=== PATIENT | male | born 1950 | race Caucasian/White ===

== ENCOUNTER 2020-11-04 18:16 | Emergency (ER) | payer MEDICARE, SELFPAY ==
--- NOTE | ~2020-11-04 | XR_ITS ---
EXAMINATION: XR chest 1V portable 11/04/2020 19:27 INDICATION: Transient alteration of awareness PROCEDURE: AP view of the chest COMPARISON: Comparison to multiple prior studies sequentially, with oldest reviewed study dated 10/14. FINDINGS: The lungs are clear. The cardiomediastinal silhouette is within normal limits. There are no pleural effusions. There is no pneumothorax suspected. There is atherosclerosis. IMPRESSION: 1: NO ACUTE CARDIOPULMONARY DISEASE. Reviewed, dictated and finalized at location A. NG FRAME OPERATOR
--- NOTE | ~2020-11-04 | CT_ITS ---
EXAMINATION: CT brain wo con DATE: 11/04/2020 19:24 INDICATION: Increased tremors. Confusion. Altered mental status. TECHNIQUE: Computed tomography (CT) of the head was performed without intravenous contrast. The dose- length product was 605.33 mGy-cm. Automated exposure control and iterative reconstruction technique w ere employed. COMPARISON: None FINDINGS: Mild generalized atrophy. There are scattered mild periventricular and subcortical white ma tter changes, most likely related to small vessel ischemic disease (microangiopathy). No acute intrac ranial hemorrhage, infarction, mass or mass effect. No ventriculomegaly or midline shift. Paranasal s inuses and mastoids are pneumatized. No depressed skull fractures. IMPRESSION: 1. No acute intracranial abnormality. 2: Chronic age-related findings. Reviewed, dictated and finalized at location A. ER HELPER
[2020-11-04 18:16] VITALS: BP 162/78; PULSE 56; RESP 18; TEMP 36.6; O2SAT 100
--- NOTE | 2020-11-04 18:34 | ECG_ITS ---
Measurements Intervals [place] Rate: 58 P: 84 AL: 194 QRS: 33 QRSD: 96 T: 42 QT: 452 QTc: 447 Interpretive Statements SINUS BRADYCARDIA INCOMPLETE RIGHT BUNDLE BRANCH BLOCK CANNOT RULE OUT SEPTAL INFARCT, AGE INDETERMINATE BORDERLINE ST ABNORMALITY- INFERIOR LEADS BASELINE ARTIFACT- I, II, III, AVR, AVL, AVF, V1, V3-V6 ABNORMAL ECG Electronically Signed On 11-05-2020 11:09:03 INFUSION THERAPY NURSE by James Carreon D.O.
[2020-11-04 18:52] LABS: Basophils Percent Auto 0.5 % (0.2-1.2); Eosinophils Absolute Auto 0.2 K/mm3 (0-0.3); Eosinophils Percent Auto 3.2 % (0-4.4); Hemoglobin 14.8 g/dL (14.0-18.0); Immature Granulocyte Absolute 0.01 K/mm3 (0.00-0.031); Immature Granulocyte Percent A 0.2 % (0-0.5); Lymphocytes Absolute Auto 1.32 K/mm3 (0.9-3.2); Lymphocytes Percent Auto 21.2 % (18.3-44.2); Mean Corpuscular HGB Conc 34.4 g/dl (32-36); Mean Corpuscular Hemoglobin 30.2 pg (26-34); Mean Corpuscular Volume 87.8 fl (80-100); Mean Platelet Volume 9.1 fl (7.4-10.4); Monocytes Absolute Auto 0.7 K/mm3 (0.1-0.6); Monocytes Percent Auto 10.4 % (2.6-8.5); Neutrophils Percent Auto 64.5 % (45.5-73.1); Platelet Count Result 213 k/mm3 (150-375); Red Cell Distribution Width 13.9 % (11.5-14.5); White Blood Count 6.2 K/mm3 (4.5-10.0)
[2020-11-04 19:05] LABS: Alanine Aminotransferase 14 U/L (4-50); Albumin Level 4.2 g/dL (3.5-5.1); Alkaline Phosphatase 110 U/L (38-126); Anion Gap 7 mmol/L (8-16); Aspartate Amino Transferase 27 U/L (17-59); Bilirubin,Total 0.7 mg/dL (0.2-1.3); Blood Urea Nitrogen 20 mg/dL (9-20); Calcium 9.4 mg/dL (8.4-10.2); Carbon Dioxide 29 mmol/L (22-30); Chloride 103 mmol/L (98-107); Estimated CRCL calculation 46 ml/min; Estimated Glomerular Filt Rate 60; Glucose 90 mg/dL (75-110); Potassium 3.8 mmol/L (3.4-5.0); Sodium 139 mmol/L (137-145)
--- NOTE | 2020-11-04 19:07 | ED.GENADULT ---
HPI - General Adult General Chief complaint: Altered Mental Status Stated complaint: altered Time Seen by Provider: 11/04/20 19:01 Source: RN notes reviewed History of Present Illness HPI narrative: Patient presents to emergency department from home with for altered mental status. Per the patient's patient has a history of Alzheimer's. He had been upstairs and came downstairs and per the had been not acting quite like himself he had said he had not felt good and had some increased tremors at that time to get the patient to sit down and drink some punch and brought him to the emergency department for further evaluation at this point time the states the patient is back to normal. patient currently denies any complaints. Per the patient's he is a diabetic takes Metformin but they did not check his blood sugar the patient has had minimal p.o. intake today denies any recent illness denies any fevers or chills chest pain shortness of breath abdominal pain nausea vomiting diarrhea or any other symptoms Related Data Home Medications Medication Instructions Recorded Confirmed aspirin 81 mg tablet,delayed 81 mg PO DAILY 11/18/19 08/30/20 release cyanocobalamin (vitamin B-12) 1,000 mcg PO DAILY 04/09/20 08/30/20 1,000 mcg capsule donepezil mg 11/04/20 Allergies Allergy/AdvReac Type Severity Reaction Status Date / Time No Known Allergies Allergy Verified 11/04/20 18:28 Review of Systems Review of Systems: Narrative: Gen.: Denies fevers or chills Eyes: Denies eye pain or visual change ENT: Denies congestion Respiratory: Denies shortness of breath or cough CV: Denies chest pain or palpitations GI: Denies abdominal pain nausea, emesis or diarrhea Musculoskeletal: Denies back pain or muscle pain Neuro: See HPI Skin: Denies rash Except as documented, all other systems reviewed and negative [facility] Past Medical History Medical History (Updated 11/04/20 @ 21:26 by Gautam Maloney DO) Alzheimer's disease, unspecified Type 2 diabetes mellitus without complication, without long-term current use of insulin Surgical History Surgical History H/O foot surgery left foot H/O hand surgery finger surgery History of knee replacement right knee Family History Family History Other Diabetes mellitus Family history of Alzheimer's disease Family history of malignant neoplasm Social History Social History Smoking status: Never smoker Alcohol intake: never Exam Narrative: Exam Narrative: APPEARANCE: No acute distress, nontoxic, resting in bed EYES: EOMI HEENT: Normocephalic, atraumatic, OMM RESPIRATORY: No respiratory distress Clear to auscultation bilaterally with no rhonchi wheezing or rales. CARDIOVASCULAR: Regular rate and rhythm without murmurs rubs or gallops. ABDOMINAL: Soft, nontender, nondistended, no rebound or guarding MUSCULOSKELETAl: Moves all extremities. No clubbing, cyanosis or edema. NEURO: Awake and alert x 1. Following commands, speech normal, no focal deficits muscle strength 5 out of 5 bilateral upper and lower extremities SKIN:: Warm, dry. No rashes lesions or abrasions PSYCHIATRIC: Normal affect/mood, Course Course Emergency Course: Patient is remained awake and alert throughout his stay in the emergency department able to Ambulate with no difficulty per the the patient is remained at his baseline throughout stay Called and discussed with Dr. Donaldson per Dr. Peralta presentation work-up agrees with plan for discharge at this time. Plan to hold metformin Discussed with patient results of workup and diagnosis. Discussed need for follow-up with primary care, proper use of medication, and reasons to return to the emergency department. Patient understands and agrees to current treatment plan Vital
[2020-11-04 20:13] LABS: Add Urine Microscopic? YES; Appearance Urine Clear (Clear); Bilirubin Urine Negative (Negative); Blood Urine 1+ (Negative); Color Urine Yellow (Yellow); Glucose Urine UA Negative (Negative); Ketones Urine 1+ mg/dL (Negative); Leukocyte Esterase Ur Negative LEU/UL (Negative); Mucus Urine Rare /lpf; Nitrate Urine Negative (Negative); Protein Urine 1+ mg/dL (Negative); Specific Grav Ur 1.018 (1.001-1.035)
[2020-11-04 20:13] LABS: Glucose Point of Care 73 (65-105)
[2020-11-04 21:09] VITALS: BP 144/82; PULSE 62; RESP 18; O2SAT 98
[2020-11-04 21:09] LABS: Glucose Point of Care 77 (65-105)
== END 2020-11-04 21:56 | disposition home or self-care (01) ==
PROVIDERS: Emergency Medicine; Emergency Provider Emergency Medicine; PCP Family Medicine
DX: R41.82 Altered mental status, unspecified (principal); G30.9 Alzheimer's disease, unspecified; F02.80 Dementia in other diseases classified elsewhere, unspecified severity, without behavioral disturbance, psychotic disturbance, mood disturbance, and anxiety; Z79.82 Long term (current) use of aspirin; E11.9 Type 2 diabetes mellitus without complications; Z96.651 Presence of right artificial knee joint; R00.1 Bradycardia, unspecified; I45.10 Unspecified right bundle-branch block; R94.31 Abnormal electrocardiogram [ECG] [EKG]
CPT/HCPCS: 36415; 51701; 70450; 71045; 80053; 81001; 82948; 85025; 93005; 99284

== ENCOUNTER 2021-07-26 09:27 | Emergency (ER) | payer MEDICARE, SELFPAY ==
--- NOTE | ~2021-07-26 | XR_ITS ---
EXAMINATION: XR chest 1V portable EXAM DATE: 07/26/2021 10:21 INDICATION: Altered mental status. TECHNIQUE: Portable AP frontal chest x-ray was obtained. Comparison is made to prior examination from 11/04/2020. FINDINGS: Right midlung zone nodule, appears unchanged compared to previous studies. Could be a granu bertrand or patient's nipple. The lungs are otherwise clear. There are no pleural effusions. The cardio mediastinal silhouette is within normal limits. There is no pneumothorax suspected. Patient has dif fuse idiopathic skeletal hyperostosis (DISH). IMPRESSION: No acute cardiopulmonary findings. Reviewed, dictated and finalized at location B.
[2021-07-26 09:32] VITALS: BP 101/63; PULSE 66; RESP 22; TEMP 36.6; O2SAT 98
[2021-07-26] MEDS: LORazepam INJ (*CRX) 2 MG/ML VIAL 0.5 MG IV PUSH (09:59)
[2021-07-26 10:19] LABS: Basophils Percent Auto 0.6 % (0.2-1.2); Eosinophils Absolute Auto 0.2 K/mm3 (0-0.3); Eosinophils Percent Auto 4.1 % (0-4.4); Hematocrit 42.7 % (42.0-52.0); Immature Granulocyte Absolute 0.02 K/mm3 (0.00-0.031); Immature Granulocyte Percent A 0.4 % (0-0.5); Lymphocytes Absolute Auto 0.84 K/mm3 (0.9-3.2); Lymphocytes Percent Auto 15.6 % (18.3-44.2); Mean Corpuscular HGB Conc 32.8 g/dl (32-36); Mean Corpuscular Hemoglobin 29.1 pg (26-34); Mean Corpuscular Volume 88.8 fl (80-100); Monocytes Absolute Auto 0.5 K/mm3 (0.1-0.6); Monocytes Percent Auto 9.1 % (2.6-8.5); Neutrophils Absolute Auto 3.8 K/mm3 (1.3-6.7); Neutrophils Percent Auto 70.2 % (45.5-73.1); Platelet Count Result 233 k/mm3 (150-375); Red Blood Count 4.81 M/mm3 (4.6-6.20); Red Cell Distribution Width 14.6 % (11.5-14.5); White Blood Count 5.4 K/mm3 (4.5-10.0)
[2021-07-26 10:28] LABS: Add Urine Microscopic? YES; Appearance Urine Clear (Clear); Bacteria Urine Trace /hpf; Bilirubin Urine Negative (Negative); Blood Urine Negative (Negative); Color Urine Yellow (Yellow); Glucose Urine UA Negative (Negative); Ketones Urine Trace mg/dL (Negative); Leukocyte Esterase Ur Negative LEU/UL (Negative); Mucus Urine Rare /lpf; Nitrate Urine Negative (Negative); Protein Urine 1+ mg/dL (Negative); WBC Urine 0-3 /hpf
[2021-07-26 10:35] LABS: Ethanol < 10 mg/dL (<10)
[2021-07-26 10:37] LABS: Alanine Aminotransferase 62 U/L (4-50); Albumin Level 4.3 g/dL (3.5-5.1); Alkaline Phosphatase 82 U/L (38-126); Anion Gap 13 mmol/L (8-16); Aspartate Amino Transferase 81 U/L (17-59); Bilirubin,Total 0.6 mg/dL (0.2-1.3); Blood Urea Nitrogen 41 mg/dL (9-20); Calcium 9.7 mg/dL (8.4-10.2); Carbon Dioxide 27 mmol/L (22-30); Chloride 107 mmol/L (98-107); Estimated CRCL calculation 56 ml/min; Estimated Glomerular Filt Rate > 60; Glucose 176 mg/dL (65-110); Potassium 3.4 mmol/L (3.4-5.0); Sodium 147 mmol/L (137-145)
[2021-07-26 10:44] LABS: Amphetamine Screen Urine Negative (Negative); Barbiturate Screen Urine Negative (Negative); Benzodiazepines Screen Urine Negative (Negative); Cannabinoid Screen Urine Positive (Negative); Cocaine Screen Urine Negative (Negative); Methadone Screen Urine Negative (Negative); Opiate Screen Urine Negative (Negative); Phencyclidine Screen Urine Negative (Negative)
[2021-07-26] MEDS: SODIUM CHLORIDE 0.9% IV 1,000 ML 999 ML IV CONT (10:50)
--- NOTE | 2021-07-26 10:57 | PCCCNOTE ---
Spoke with Amie at [facility]. Currently there are no beds in the Memory Unit but she is willing to come to the ED and speak with pt's about their services and place patient on a waiting list. Left message for Enedelia at [facility].
[2021-07-26 10:59] LABS: Specific Grav Ur 1.034 (1.001-1.035)
--- NOTE | 2021-07-26 11:16 | PCCCNOTE ---
Message left for Khoi Gan. No answer at [facility] or [facility] - multiple attempts
--- NOTE | 2021-07-26 11:23 | PCCCNOTE ---
Message left for Sarah Farias
[2021-07-26 11:51] VITALS: BP 124/63; PULSE 62; RESP 18; O2SAT 99
--- NOTE | 2021-07-26 11:57 | ED.AMS ---
HPI - Altered Mental Status General Chief Complaint: Altered Mental Status Stated Complaint: Progression of Alzheimers Time Seen by Provider: 07/26/21 09:37 History of Present Illness HPI narrative: Patient is a 71-year-old male with history of Alzheimer's disease who presents ER with progression of his disease. Per over the last month he is becoming more agitated with minor stimuli where he acts out. He has lost the ability to know how to use the toilet and will urinate on the floor. He also is not capable of feeding himself and cannot use utensils and will try to feed himself applesauce with his hand. He is alert and oriented x0 at this time. He is now requiring assistance with walking with a gait belt. and her 2 children have been attempting to care for him at home. Patient referred here by PCP for medical exam to rule out additional process. reports patient has been given some THC as well as CBD to try to control his agitation which only helped briefly. Related Data Home Medications Medication Instructions Recorded Confirmed aspirin 81 mg tablet,delayed 81 mg PO DAILY 11/18/19 02/14/21 release cyanocobalamin (vitamin B-12) 1,000 mcg PO DAILY 04/09/20 02/14/21 1,000 mcg capsule ranitidine HCl 150 mg capsule mg PO DAILY cap 02/11/21 02/14/21 triamterene 37.5 1 cap PO DAILY 02/11/21 02/14/21 mg-hydrochlorothiazide 25 mg capsule Allergies Allergy/AdvReac Type Severity Reaction Status Date / Time No Known Allergies Allergy Verified 07/26/21 09:45 Review of Systems Review of Systems: ROS unobtainable: Yes unobtainable due to mental status [facility] Past Medical History Medical History (Updated 07/26/21 @ 13:13 by Kenrick Cannon MD) Alzheimer's dementia Alzheimer's disease, unspecified Type 2 diabetes mellitus without complication, without long-term current use of insulin Surgical History Surgical History H/O foot surgery left foot H/O hand surgery finger surgery History of knee replacement right knee Family History Family History Other Diabetes mellitus Family history of Alzheimer's disease Family history of malignant neoplasm Social History Social History (Updated 02/14/21 @ 15:38 by Selena Prater MA) Smoking status: Former smoker Second hand tobacco smoke exposure: Yes Alcohol intake: never Exam Narrative: GENERAL: Chronically ill-appearing, well-nourished, and agitated. HEAD: Normocephalic, atraumatic. EYES: PERRL and EOMI. ENT: Mucous membranes moist. CHEST: Clear to auscultation. No respiratory distress. HEART: Regular rate and rhythm. Normal peripheral pulses. ABDOMEN: Soft, nontender, nondistended. EXTREMITIES: Normal range of motion. No edema. SKIN: Warm, dry, multiple scabs to head neck and chest for patient has been picking himself. NEURO: Alert and oriented x0. Course Course Emergency Course: Care coordination has been down and spoken with the family. We have reached out to multiple memory care's and found several beds. Unfortunately this would be an [id number] expense for which the is not willing to pay. She has been given multiple resources and also discussed home health. Patient will be discharged at this time. Vital Signs Vital signs: Vital Signs Temperature 97.8 F 07/26/21 09:32 Pulse Rate 66 07/26/21 09:32 Respiratory Rate 22 H 07/26/21 09:32 Blood Pressure 101/63 07/26/21 09:32 Pulse Oximetry 98 07/26/21 09:32 Temperature 97.8 F 07/26/21 09:32 Pulse Rate 62 07/26/21 11:51 Respiratory Rate 18 07/26/21 11:51 Blood Pressure 124/63 07/26/21 11:51 Pulse Oximetry 99 07/26/21 11:51 MDM - Altered Mental Status Lab Data Result diagrams: 07/26/21 10:03 07/26/21 10:04 Labs: Lab Results 07/26/21 07/26/21 07/26/21 Range/Units 10:03 10
[2021-07-26 13:13] VITALS: BP 133/67; PULSE 66; RESP 17; O2SAT 98
== END 2021-07-26 13:37 | disposition home or self-care (01) ==
PROVIDERS: Emergency Provider Emergency Medicine; PCP Family Medicine
DX: G30.9 Alzheimer's disease, unspecified (principal); F02.80 Dementia in other diseases classified elsewhere, unspecified severity, without behavioral disturbance, psychotic disturbance, mood disturbance, and anxiety; E11.9 Type 2 diabetes mellitus without complications; Z79.899 Other long term (current) drug therapy; Z79.82 Long term (current) use of aspirin; Z87.891 Personal history of nicotine dependence
CPT/HCPCS: 36415; 51701; 71045; 80053; 80307; 81001; 84443; 85025; 96361; 96374; 99284; J2060; J7030